=== PATIENT | male | born 2000 | race Hispanic/Latino ===

== ENCOUNTER 2018-11-13 19:08 | Emergency (ER) | payer OTHER ==
[2018-11-13 20:31] LABS: RAPID GROUP A STREP NEGATIVE (NEGATIVE)
== END 2018-11-13 21:24 | disposition home or self-care (01) ==
LOC: EDH 19:08
DX: J06.9 Acute upper respiratory infection, unspecified (principal)
CPT/HCPCS: 87804; 87880